=== PATIENT | female | born 1975 | race Caucasian/White ===

== ENCOUNTER 2024-11-27 00:27 | Emergency (ER) | payer BC, SELFPAY ==
--- NOTE | 2024-11-27 00:31 | ED.WOUNDLAC ---
HPI - Wound/Laceration General Chief Complaint: Wound/Laceration Stated Complaint: Head Strike Time Seen by Provider: 11/27/24 00:31 Source: patient Mode of arrival: ambulatory Limitations: no limitations History of Present Illness ED Provider: Rafaela Agee PA-C HPI narrative: Patient seeks medical attention tonight in the emergency department for evaluation of laceration to her right/central forehead. She was walking in the middle of the night to go to the bathroom and accidentally walked into the edge of the door which subsequently caused the laceration in her forehead. She did not lose consciousness or fall to the ground. She reports having minor pain in this area but otherwise no visual changes she does not feel nauseous no vomiting. No prior concussion in the past. Her tetanus is up-to-date. She is not on any anticoagulation. Reporting no other injuries. Her mom and her son is accompanied by her today the mom drove her here. Onset (ago): hour(s) (one) Location: face Related Data Allergies Allergy/AdvReac Type Severity Reaction Status Date / Time Penicillins (PCN) AdvReac Hives Verified 11/27/24 00:33 Review of Systems Review of Systems: Yes all other systems are reviewed and are negative PMFSH Past Medical History Attestation statement: The following information was validated with the patient. Source: obtained from family and nursing notes reviewed Social History Social History Advance Directives: No Advance Directives Information Provided: Yes Do you have a plan to hurt others: No Plan Physical Exam Exam: Exam: General: Appears in no acute distress, appears well nourished body habitus is normal, appears stated age. No septic or ill-appearing. Vitals reviewed normal, PMH/Social and Surgical hx reviewed including allergies and current medications. - Head: Normocephalic, horizontal linear laceration noted in the middle to the right of the forehead approximately 2.25 cm in length with visible subcutaneous tissue edges are well approximated no obvious arterial bleed cranial nerves 2-12 are intact no facial palsy is noted. Eyes: EOMI, PERRLA ENMT: moist oral mucosa Neck: trachea midline Cardiovascular: peripheral perfusion normal, Regular heart rate, regular Respiratory: no respiratory distress Abdomen: nondistended Extremities: warm and moving without difficulty unless otherwise detailed in physical exam if applicable. Psych: Cooperative Neuro: Alert and oriented. neg pronator drifts, strength 4+ throughout, sensation intact DTRs intact Vital Signs: Vital Signs: Last Vital Signs Temp 98.0 F 11/27/24 00:54 Pulse 70 11/27/24 00:54 Resp 16 11/27/24 00:54 BP 133/63 11/27/24 00:54 Pulse Ox 98 11/27/24 00:54 O2 Del Method Room Air 11/27/24 00:54 BMI result Body Mass Index 25.0 Medical Decision Making Medical Decision Making [facility] Narrative: Patient here for forehead laceration. Patient is afebrile with stable vitals and well-appearing.? History and physical as stated above.??She is low risk for ICH via [place] head CT rule no risk for cervical spine fracture via nexus criteria. She is not present with evidence of concussion clinically. Patient's tetanus was UTD. No evidence of foreign body or bony tenderness, x-rays not indicated. No evidence of arterial bleed or tendon rupture. No evidence of neurovascular compromise. ROM intact. Wound was cleansed and explored. Discussed wound repair options before proceeding with care. Wound was closed with dermabond and steri strips, see procedure note.? Discussed wound care with the patient.? The wound was not contaminated, PO antibiotics were not prescribed. Recommend follow-up either with her PCP to have wound rechecked and repeat neuro exam- time frame in plan.? I thoroughly discussed if concerned for any signs of infection to follow up right away.? Discussed symptomatic treatment with the patient.? Discussed other return precautions as detailed in plan.? Patient verbalized understanding of the above plan and is in agreement with the above plan.? The patient was discharged home in stable condition with return precautions.? Differential Diagnosis Differential Diagnoses: The differential diagnosis associated with the presentation includes Admission/Observation Consideration of admission/observation: Escalation of care including admission/observation considered Independent Interpretation I performed an independent interpretation of an: Plain X-Ray Tests considered The following testing was considered but not selected: See [facility] Prescription Management I considered prescription management with: Antibiotic Procedures Laceration Laceration 1: Site: face Size (cm): 2.25 Description: linear Depth: simple, single layer Pre-repair: wound explored, irrigated extensively and deep structures intact Technique: skin adhesive (dermabond and four retention steri-strips) Discharge Plan Discharge Clinical Impression: Forehead laceration Qualifiers: Encounter type: initial encounter Qualified Code(s): S01.81XA - Laceration without foreign body of other part of head, initial encounter Head injury Qualifiers: Encounter type: initial encounter Qualified Code(s): S09.90XA - Unspecified injury of head, initial encounter Patient Disposition: Home, Self-Care Instructions: Skin Adhesive Care (ED), Skin Adhesive Strips (ED) Additional Instructions: We have repaired your laceration with Dermabond and steri-strips.?? The glue will hold the edges of the skin together while it heals.?? This will wear off in about 5-7 days.?Steri-strips will wear off too. DO not peel them off. Do not put lotion or antibiotic ointment on the glue as it will break it down prematurely.?? You can wash the area normally after 6 hours; however, do not have any prolonged soaks in water.?? As with any laceration, there may be scarring.? The full extent of the scar may not be determined for 6 months to a year.? Minimizing sun exposure will help to reduce scarring. Return immediately or call your doctor for signs of infection that include the following:? Red streaks from wound or surrounding the wound, pus draining from the wound, increased pain, or fever > 100.4 degrees F. HEAD precautions: You were evaluated for the head injury Your neurologic exam was normal here. You have sustained an injury to your head.?? You have symptoms of a concussion.? We have found no evidence to indicate that your head injury was serious, however, new symptoms and unexpected complications can develop hours or even days after the injury. The first 24 hours are the most crucial and you should remain with a reliable absorption and adsorption engineer at least during this period. If any of the following signs develop please go to the ER immediately. - Drowsiness/increased difficulty arousing the patient - Vomiting - Convulsions or fits - Bleeding or watery drainage from the nose or ear - Severe headache - Weakness or loss of feeling in the arm or leg - Confusion or strange behavior - One pupil (black part of the eye) becomes much larger than the other; peculiar eye movements, double vision, or other visual disturbances Please contact your PCP to arrange a followup appointment for reevaluation.?? Sometimes it can take more than a week for complete recovery. No strenuous exercise.? Avoid activity that requires higher level of concentration (reading, staring at screens - ie computer, cell phones). You should avoid any activity that you feel exacerbates your headache. As you begin to feel better you can slowly begin to introduce new activities until you are feeling well and are able to perform your usual activity without symptoms. ABSOLUTELY NO ACTIVITY WHERE YOU COULD HAVE ANOTHER HEAD INJURY, until you have been cleared by you PCP or a neurologist.? You may eat or drink as usual if you so desire, however, you should not drink alcoholic beverages while experiencing concussive symptoms as this may exacerbate your symptoms. Do not use any pain medications stronger than Acetaminophen (Tylenol) for the first 24 hours. Interventions: ED Discharge Assessment Last Done: 11/27/24 00:54 Discharge Date/Time: 11/27/24 00:54 Print Language: Spanish
[2024-11-27 00:33] VITALS: BP 133/63; PULSE 70; RESP 16; TEMP 36.7; O2SAT 98; BMI 25.0
[2024-11-27 00:54] VITALS: BP 133/63; PULSE 70; RESP 16; TEMP 36.7; O2SAT 98
--- OUTSIDE RECORDS SUMMARY | 2024-11-27 00:57 | XMS_ITS | Clinical Summary ---
Author Organization [facility] Address [address] [place] [phone] Phone Care Team Providers Care Courtesy Car Driver Name Role Phone Renee Alvarez MD Primary Care Provider + Allergies Active Allergy Reactions Criticality Noted Date Comments Azithromycin 02/11/2024 Penicillins 02/11/2024 Medications fluticasone propionate (FLONASE) 50 mcg/actuation nasal spray SPRAY 1 SPRAY BY INTRANASAL ROUTE EVERY DAY Active sertraline (ZOLOFT) 25 MG tablet Take 25 mg by mouth daily. Active Active Problems No known active problems Social History Tobacco Use Types Packs/Day Years Used Date Smoking Tobacco: Never Smokeless Tobacco: Never Tobacco Cessation:Counseling Given: Not Answered Alcohol Use Standard Drinks/Week Comments Yes 0 (1 standard drink = 0.6 oz pur e alcohol) Education Answer Date Recorded Are you interested in more education? Not on celsa e 08/05/2023 Are you concerned about learning? Not on file 08/05/2023 No 08/05/2023 No 08/05/2023 Digital Access Answer Date Recorded No 08/05/2023 No 08/05/2023 Reliable internet access at home? Not on file 08/05/2023 Device with a working camera? Not on file Comments Unknown Sex and Gender Information Value Date Recorded Sex Assigned at Not on file Legal Sex Female 9:30 PM EDT Gender Identity Not on file Sexual Orientation Not on file Last Filed Vital Signs Vital Sign Reading Time Taken Comments Blood Pressure 129/86 02/11/2024 4:34 PM EST Pulse 84 02/11/2024 4:34 PM EST Temperature - - Respiratory Rate 20 02/11/2024 4:34 PM EST Oxygen Saturation 99% 02/11/2024 4:34 PM EST Inhaled Oxygen Concentration - - Weight 59 kg (130 lb) 02/11/2024 4:34 PM EST Height 154.9 cm (5' 1 ) 02/11/2024 4:34 PM EST Body Mass Index 24.56 02/11/2024 4:34 PM EST Plan of Treatment Health Maintenance Due Date Last Done Comments LIPID PANEL 1975 DEPRESSION SCREENING 1985 HEPATITIS C SCREENING 10/31/1991 HIV ONE-TIME SCREENING (18-65 YEARS) 10/31/1991 MAMMOGRAM 2013 COLOGUARD 2018 COLONOSCOPY 2018 COLORECTAL CANCER SCREENING 2018 FIT TEST 2018 FOBT 2018 SIGMOIDOSCOPY 2018 VIRTUAL COLONOSCOPY 2018 PNEUMOCOCCAL VACCINES (50+ years) (1 of 1 - PCV) 10/31/2023 ZOSTER VACCINES (1 of 2) 10/31/2023 INFLUENZA VACCINE (#1) 2024 , 12/09/2022, 02/17/2022, Additional history exists COVID-19 VACCINE (2024- season) 2024 12/27/2022, 02/17/2022, 01/19/2021, Additional history exists PAP SMEAR 07/31/2026 08/01/2023 Adult Td,Tdap Booster 06/08/2033 06/09/2023 SMOKING STATUS SCREENING (Once After 26 Yrs) Completed 02/11/2024 HEPATITIS A VACCINES Aged Out No long er eligible based on patient's age to complete this topic HIB VACCINES Aged Out No longer eligi ble based on patient's age to complete this topic MENINGOCOCCAL VACCINES (ACWY) Aged Out No longer eligible based on patient's age to complete this topic MENINGOCOCCAL VACCINES (B) Aged Out N o longer eligible based on patient's age to complete this topic Medical Devices Not on file Procedures Procedure Name Priority Date/Time Associated Diagnosis Comments PAP TEST Routine 08/01/2023 12:00 AM EDT from Last 3 Months or Most Recently Relevant to Health Maintenance Results * Pap Test (08/01/2023 12:00 AM EDT) 08/01/2023 08/05/2023 9:5 3 AM EDT Narrative SEE NARRATIVE - 08/11/2023 6:12 PM EDT [address] [address] Elevator Repairer Helper: Camille Hoyos MD FINAL ASSEMBLY INSPECTOR Cytology Report FINAL DIAGNOSIS A. PAP SMEAR (THIN PREP) CE: SPECIMEN ADEQUACY: Satisfactory for evaluation; transformation zone present. INTERPRETATION: NEGATIVE FOR INTRAEPITHELIAL LESION OR MALIGNANCY. This specimen was analyzed by the automated ThinPrep Imaging System ([employer]eezer.) and manually rescreened by a dry food products mixer and/or pathologist. Electronically Signed Out By: KIT Conner(ASCP) KIT Hill(ASCP) The Pap test is a screening test primarily for squamous cancers and precursors and has associated false-negative and false-positive results. New technologies such as liquid-based preparations may decrease but will not eliminate all false-negative results. Regular sampling and follow-up of unexplained clinical signs and symptoms are recommended to minimize false negative results. PROCEDURES/ADDENDA HPV Testing (Requested) Ordered Date: 08/05/2023 A. PAP SMEAR (THIN PREP) CE: Human Papilloma Virus Test NEGATIVE for high-risk Human Papilloma Virus types 16, 18, 45 and the Other high risk probe set (Includes 31, 33, 35, 39, 51, 52, 56, 58, 59, 66, 68) Note: Testing performed by [employer] HR-HPV analysis. Clinical correlation is advised. This HPV test was performed at [facility], [address] [place] [address]. This test has been FDA approved for both SurePath and ThinPrep cervical cytology specimens. The accuracy and precision of this test for all other specimen sources has been verified in the Cytopathology Laboratory of the [facility] and has not been cleared or approved by the U.S. Food and Drug Administration. Clinical correlation is advised. CLINICAL HISTORY Date of Last Menstrual Period: Not Provided Menstrual History: Unknown Other Clinical Conditions: Screening Pap SPECIMEN SOURCE A: PAP SMEAR (THIN PREP) CE Patient Name: GEORGIE WONG : 1975 (Age: 47) Sex: F Institution: [facility] Location: [facility] Date of Collection: 08/01/2023 Date of Reported: 08/11/2023 18:12 Results to: Renee Alvarez MD us Renee Alvarez MD CYTOLOGY ORDERABLES Rita bunch Result SEE NARRATIVE from Last 3 Months or Most Recently Relevant to Health Maintenance Insurance [address] [place] [address] [place] [address] [facility] Care Teams Courtesy Car Driver Relationship Specialty Start Date End Date Renee Alvarez MD [address] [place] [phone] [email or web address] PCP - General Family Medicine 02/11/24 Additional Source Comments The information contained in this document represents components of the legal health record. It is not the complete legal health record.[facility]
== END 2024-11-27 00:54 | disposition home or self-care (01) ==
PROVIDERS: Emergency Provider Emergency Medicine Emergency Medical Services
DX: S01.81XA Laceration without foreign body of other part of head, initial encounter (principal); S09.90XA Unspecified injury of head, initial encounter; W22.01XA Walked into wall, initial encounter; Y93.89 Activity, other specified; Y92.89 Other specified places as the place of occurrence of the external cause; Y99.9 Unspecified external cause status
CPT/HCPCS: 12011; 99282; 99284